=== PATIENT | female | born 1960 | race Two or more races ===

== ENCOUNTER 2021-07-08 10:38 | Emergency (ER) | payer OTHER ==
[~2021-07-08] VITALS: Ht 167.6 cm; Wt 79.4 kg
[2021-07-08] MEDS ORDERED: CLONAZEPAM0.5 MG PO (11:41)
[2021-07-08] MEDS ORDERED: LOSARTAN POTASS50 MG (11:42)
[2021-07-08] MEDS ORDERED: ATORVASTATIN CA10 MG PO (11:43)
[2021-07-08] MEDS ORDERED: CYMBALTA30 MG PO (11:43)
[2021-07-08] MEDS ORDERED: BUPROPION XL450 MG PO (11:43)
[2021-07-08] MEDS ORDERED: HYDROCODONE-ACE15 M2 PO (11:44)
[2021-07-08] MEDS ORDERED: TRAZODONE HCL50 MG PO (11:44)
[2021-07-08] MEDS ORDERED: DICLOFENAC SODI75 MG PO (17:12)
== END 2021-07-08 17:19 | disposition home or self-care (01) ==
LOC: ER 10:38
DX: R10.84 Generalized abdominal pain (principal); I10 Essential (primary) hypertension; F32.A Depression, unspecified; Z88.8 Allergy status to other drugs, medicaments and biological substances